=== PATIENT | female | born 1990 | race Caucasian/White ===

== ENCOUNTER → 2019-05-04 17:25 | Observation (INO) | END | disposition home or self-care (01) | LOC: 1NENULAB | PROVIDERS: ADMIT Advanced Practice Midwife; ATTEND Advanced Practice Midwife ==

== ENCOUNTER 2019-05-16 15:38 | Observation (INO) ==
[2019-05-16] MEDS ORDERED: Ondansetron 4 MG/2 ML VIAL IVP PRN (17:38)
[2019-05-16] MEDS ORDERED: Naloxone 0.4 MG/ML INJ IVP PRN (17:38)
[2019-05-16] MEDS ORDERED: Metoclopramide 10 MG/2 ML VIAL IVP PRN (17:38)
[2019-05-16] MEDS ORDERED: *HR* Nalbuphine 10 MG/ML AMPUL IVP PRN (17:38)
[2019-05-16] MEDS ORDERED: Famotidine 20 MG/2 ML VIAL IVP PRN (17:38)
[2019-05-16] MEDS ORDERED: Oxytocin 20 units/ LR 1000 mL 20 UNIT/1,000 ML BAG IVC SCH (17:45)
[2019-05-16] MEDS ORDERED: Ringers Solution, Lactated 1,000 ML IVC SCH (17:45)
[2019-05-16 18:34] LABS: Eosinophils % 0.5 %; Immature Granulocytes % 0.5 % (0-4); Nucleated Red Blood Cells 0.4 /100 WBC (0)
[2019-05-16 18:35] LABS: Amphetamine Screen,Urine Negative ng/mL (Cutoff=1000); Barbiturate Screen,Urine Negative ng/mL (Cutoff=200); Basophils # 0.1 K/mcL (0.0-0.2); Basophils % 0.6 %; Benzodiazepines Screen,Urine Negative ng/mL (Cutoff=200); Cannabinoid Screen,Urine Negative ng/mL (Cutoff = 50); Cocaine Screen,Urine Negative ng/mL (Cutoff= 300); Creatinine,Urine 36 mg/dL; Hematocrit 26.2 % (35.3-44.9); Hemoglobin 7.7 g/dL (11.5-15.4); Lymphocytes # 1.8 K/mcL (0.6-4.6); Lymphocytes % 21.9 %; Mean Corpuscular HGB Conc 29.4 g/dL (31.6-35.5); Mean Corpuscular Hemoglobin 21.4 pg (28.0-33.3); Mean Platelet Volume 11.3 fL (9.4-12.4); Monocytes # 0.6 K/mcL (0.0-1.3); Monocytes % 7.1 %; Opiate Screen,Urine Negative ng/mL (Cutoff=300); Phencyclidine Screen,Urine Negative ng/mL (Cutoff=25); Platelet Count 230 K/mcL (140-400); Protein/Creatinine Ratio,Urine 1.31 mg/mg (0.00-0.20); Red Blood Count 3.59 M/mcL (3.82-4.97); Red Cell Distribution Width 17.4 % (11.5-14.5); Segmented Neutrophils % 69.4 %; White Blood Count 8.1 K/mcL (4.3-11.1)
[2019-05-16 18:37] LABS: Neutrophils # 5.6 K/mcL (1.6-8.9)
[2019-05-16 18:49] LABS: Alanine Aminotransferase 10 Units/L (7-52); Aspartate Amino Transferase 18 Units/L (13-39); BUN/Creatinine Ratio 16 (6-26); Blood Urea Nitrogen 10 mg/dL (6-20); Lactate Dehydrogenase 183 Units/L (140-271); Uric Acid 3.8 mg/dL (2.3-7.6); eGFR For African Americans > 60 (> 60); eGFR For Non-African Americans > 60 (> 60)
[2019-05-16 19:07] LABS: Hypochromasia Present (Not Present); Polychromasia 1+ (Not Present)
== END 2019-05-16 19:35 | disposition other institution (70) | DRG 832 ==
LOC: 1NENULAB → OBSVTOIN 15:38 → INTOOBSV 15:38
PROVIDERS: ADMIT Registered Nurse; ATTEND Registered Nurse

== ENCOUNTER 2021-02-18 09:57 | Inpatient (IN) ==
[2021-02-18] MEDS ORDERED: *HR* Midazolam HCl 2 MG/2 ML VIAL ONE (10:15)
[2021-02-18] MEDS ORDERED: *HR* Propofol 200 MG/20 ML VIAL IVP ONE (10:15)
[2021-02-18] MEDS ORDERED: *HR* FentaNYL (PF) 100 MCG/2 ML VIAL ONE (10:15)
[2021-02-18] MEDS ORDERED: Lidocaine -MPF 2% 2 ML VIAL ONE (10:19)
[2021-02-18] MEDS ORDERED: Ondansetron 4 MG/2 ML VIAL ONE (10:19)
[2021-02-18] MEDS ORDERED: *HR* Rocuronium Bromide 50 MG/5 ML VIAL ONE (10:19)
[2021-02-18] MEDS ORDERED: Lidocaine HCL 4 ML Topical Solution (Laryng-O-Jet Kit Sterile Pak) TP ONE (10:19)
[2021-02-18] MEDS ORDERED: *HR* OxyCODONE Immed Rel 5 MG TABLET PO PRN (10:44)
[2021-02-18] MEDS ORDERED: Acetaminophen IV 1,000 MG/100 ML BAG IVPB ONE (10:44)
[2021-02-18] MEDS ORDERED: Scopolamine Patch 1.5 MG PATCH.TD72 TD ONE (10:44)
[2021-02-18] MEDS ORDERED: *HR* Labetalol 20 MG/4 ML SYRINGE IVP PRN (10:44)
[2021-02-18] MEDS ORDERED: Famotidine 20 MG/2 ML VIAL IVP ONE (10:44)
[2021-02-18] MEDS ORDERED: Pregabalin 75 MG CAPSULE PO ONE (10:44)
[2021-02-18] MEDS ORDERED: *HR* HYDROmorphone 2 MG TABLET PO PRN (10:44)
[2021-02-18] MEDS ORDERED: cefOXitin 2,000 MG in Water for inj. (sterile) 20 ML IVP ONE (10:48)
[2021-02-18] MEDS ORDERED: Lidocaine/EPI 1:100k 1% 50 ML VIAL ONE (10:54)
[2021-02-18] MEDS ORDERED: Ringers Solution, Lactated 1,000 ML IVC SCH (11:00)
[2021-02-18] MEDS ORDERED: CefOXitin 2,000 MG VIAL ONE (12:08)
[2021-02-18] MEDS ORDERED: Sugammadex Sodium 200 MG/2 ML VIAL IV ONE (12:19)
[2021-02-18] MEDS ORDERED: *HR* HYDROMORPHONE 2 MG/ML VIAL ONE (12:29)
[2021-02-18] MEDS: *HR* HYDROmorphone (PF) 1 MG/ML SYRINGE IVP PRN ×2 (13:01→13:11)
[2021-02-18] MEDS ORDERED: *HR* Belladonna Alkaloids/Opium 30 MG RECTAL SUPPOSITORY RC ONE (13:33)
[2021-02-18] MEDS ORDERED: Colchicine 0.6 MG TABLET PO PRN (14:27)
[2021-02-18] MEDS ORDERED: Ondansetron 4 MG/2 ML VIAL IVP PRN (14:27)
[2021-02-18] MEDS ORDERED: Naloxone 0.4 MG/ML INJ IVP PRN (14:27)
[2021-02-18] MEDS: Ringers Solution, Lactated 1,000 ML IVC SCH ×2 (17:23→20:03)
[2021-02-18] MEDS: *HR* Acetaminophen w/Cod 300-30 mg 1 TAB TABLET PO SCH (17:54)
[2021-02-18] MEDS ORDERED: Ketorolac 15 MG/ML VIAL IVP SCH (18:00)
[2021-02-18] MEDS ORDERED: *HR* HYDROmorphone (PF) 1 MG/ML SYRINGE IVP ONE (22:29)
[2021-02-19] MEDS: *HR* Acetaminophen w/Cod 300-30 mg 1 TAB TABLET PO SCH ×4 (00:56→18:04)
[2021-02-19 03:59] LABS: Basophils % 0.3 %; Hematocrit 38.3 % (35.3-44.9); Hemoglobin 12.1 g/dL (11.5-15.4); Immature Granulocytes % 0.4 % (0-4); Lymphocytes # 0.7 K/mcL (0.6-4.6); Lymphocytes % 5.7 %; Mean Corpuscular HGB Conc 31.6 g/dL (31.6-35.5); Mean Corpuscular Hemoglobin 29.9 pg (28.0-33.3); Mean Corpuscular Volume 94.6 fL (83.0-100.0); Mean Platelet Volume 9.9 fL (9.4-12.4); Monocytes # 0.7 K/mcL (0.0-1.3); Neutrophils # 10.2 K/mcL (1.6-8.9); Platelet Count 238 K/mcL (140-400); Red Blood Count 4.05 M/mcL (3.82-4.97); Red Cell Distribution Width 12.1 % (11.5-14.5); Segmented Neutrophils % 87.6 %; White Blood Count 11.6 K/mcL (4.3-11.1)
[2021-02-19] MEDS: Sennosides 8.6 MG TABLET PO PRN ×2 (06:19→21:12)
[2021-02-19] MEDS: DilTIAZem CD (24hr) 120 MG CAP.ER.24H PO SCH (07:32)
[2021-02-19] MEDS: Metoprolol XL (24 HR) Succ 50 MG TAB.ER.24H PO SCH (07:32)
[2021-02-19] MEDS: lisinopriL 10 MG TABLET PO SCH (07:32)
[2021-02-19] MEDS ORDERED: Ketorolac 30 MG/ML VIAL IVP ONE (08:54)
[2021-02-19] MEDS ORDERED: *HR* HYDROmorphone (PF) 1 MG/ML SYRINGE IVP ONE (09:28)
[2021-02-19] MEDS: Ondansetron ODT 4 MG TAB.RAPDIS SL PRN ×2 (12:54→18:58)
[2021-02-19] MEDS: *HR* OxyCODONE Immed Rel 5 MG TABLET PO PRN ×2 (12:54→16:55)
[2021-02-20] MEDS: Ondansetron ODT 4 MG TAB.RAPDIS SL PRN ×4 (00:08→20:45)
[2021-02-20] MEDS: *HR* OxyCODONE/APAP 5/325 TABLET PO PRN ×2 (00:08→06:15)
[2021-02-20] MEDS: Metoprolol XL (24 HR) Succ 50 MG TAB.ER.24H PO SCH (08:21)
[2021-02-20] MEDS: lisinopriL 10 MG TABLET PO SCH (08:21)
[2021-02-20] MEDS: DilTIAZem CD (24hr) 120 MG CAP.ER.24H PO SCH (08:22)
[2021-02-20] MEDS: Ketorolac 30 MG/ML VIAL IVP PRN ×2 (14:09→20:45)
[2021-02-20] MEDS ORDERED: Isovue-370 500 ML BOTTLE IVP ONE ×2 (14:46→16:39)
[2021-02-20] MEDS: Pantoprazole 40 MG VIAL IVP SCH (16:32)
[2021-02-20 17:25] LABS: Hematocrit 34.7 % (35.3-44.9); Hemoglobin 11.2 g/dL (11.5-15.4); Immature Platelets 4.2 % (1.1-6.1); Mean Corpuscular HGB Conc 32.3 g/dL (31.6-35.5); Mean Corpuscular Hemoglobin 29.5 pg (28.0-33.3); Mean Corpuscular Volume 91.3 fL (83.0-100.0); Mean Platelet Volume 10.2 fL (9.4-12.4); Red Blood Count 3.8 M/mcL (3.82-4.97); Red Cell Distribution Width 12.6 % (11.5-14.5); White Blood Count 15.7 K/mcL (4.3-11.1)
[2021-02-20] MEDS ORDERED: ISOVUE-370 100 ML INFUS..BTL PO ONE (18:05)
[2021-02-20] MEDS ORDERED: Ringers Solution, Lactated 1,000 ML ONE (23:57)
[2021-02-21] MEDS: Ringers Solution, Lactated 1,000 ML IVC SCH ×5 (00:11→10:26)
[2021-02-21] MEDS ORDERED: Chloraseptic Spray 177 ML BOTTLE MM PRN (01:27)
[2021-02-21] MEDS: Ketorolac 30 MG/ML VIAL IVP SCH ×4 (01:39→17:50)
[2021-02-21] MEDS: Acetaminophen 650 MG RECTAL SUPP RC SCH ×2 (01:40→05:05)
[2021-02-21] MEDS: Ondansetron 4 MG/2 ML VIAL IVP SCH ×3 (01:40→16:40)
[2021-02-21] MEDS: Pantoprazole 40 MG VIAL IVP SCH ×2 (04:59→16:40)
[2021-02-21 05:10] LABS: Hematocrit 34.3 % (35.3-44.9); Mean Corpuscular HGB Conc 32.1 g/dL (31.6-35.5); Mean Corpuscular Hemoglobin 29.6 pg (28.0-33.3); Mean Corpuscular Volume 92.2 fL (83.0-100.0); Mean Platelet Volume 10.2 fL (9.4-12.4); Platelet Count 230 K/mcL (140-400); Red Blood Count 3.72 M/mcL (3.82-4.97); Red Cell Distribution Width 12.7 % (11.5-14.5); White Blood Count 14.5 K/mcL (4.3-11.1)
[2021-02-21 05:28] LABS: Alanine Aminotransferase 7 Units/L (7-52); Albumin 3.4 g/dL (3.5-5.7); Albumin/Globulin Ratio 1.2 (1.1-2.2); Alkaline Phosphatase 62 Units/L (34-104); Aspartate Amino Transferase 14 Units/L (13-39); BUN/Creatinine Ratio 15 (6-26); Bilirubin,Total 0.7 mg/dL (0.3-1.0); Blood Urea Nitrogen 18 mg/dL (6-20); Calcium 8.8 mg/dL (8.6-10.3); Carbon Dioxide 22 mEq/L (23-29); Chloride 98 mEq/L (98-107); Globulin 2.8 g/dL (2.4-3.5); Glucose 78 mg/dL (70-105); Osmolality,Calculated 265 (280-300); Potassium 4.6 mEq/L (3.5-5.1); Sodium 127 mEq/L (136-145); Total Protein 6.2 g/dL (6.4-8.9); eGFR For African Americans > 60 (> 60); eGFR For Non-African Americans 52 (> 60)
[2021-02-21] MEDS ORDERED: Famotidine 20 MG/2 ML VIAL IVP SCH (06:00)
[2021-02-21] MEDS: Metoprolol XL (24 HR) Succ 50 MG TAB.ER.24H PO SCH (08:47)
[2021-02-21] MEDS: DilTIAZem CD (24hr) 120 MG CAP.ER.24H PO SCH (08:48)
[2021-02-21] MEDS: lisinopriL 10 MG TABLET PO SCH (08:48)
[2021-02-21] MEDS: Acetaminophen IV 1,000 MG/100 ML BAG IVPB SCH ×2 (11:27→17:50)
[2021-02-21] MEDS: *HR* HYDROmorphone (PF) 1 MG/ML SYRINGE IVP PRN (19:40)
[2021-02-22] MEDS: Ketorolac 30 MG/ML VIAL IVP SCH ×4 (00:25→17:12)
[2021-02-22] MEDS: Acetaminophen IV 1,000 MG/100 ML BAG IVPB SCH ×4 (00:30→17:17)
[2021-02-22] MEDS: Ondansetron 4 MG/2 ML VIAL IVP SCH ×3 (00:30→17:11)
[2021-02-22] MEDS: *HR* HYDROmorphone (PF) 1 MG/ML SYRINGE IVP PRN ×2 (01:45→19:30)
[2021-02-22] MEDS: Pantoprazole 40 MG VIAL IVP SCH ×2 (03:38→15:14)
[2021-02-22] MEDS: Ringers Solution, Lactated 1,000 ML IVC SCH ×2 (04:25→11:09)
[2021-02-22] MEDS: DilTIAZem CD (24hr) 120 MG CAP.ER.24H PO SCH (09:15)
[2021-02-22] MEDS: lisinopriL 10 MG TABLET PO SCH (09:15)
[2021-02-22] MEDS: Metoprolol XL (24 HR) Succ 50 MG TAB.ER.24H PO SCH (09:15)
[2021-02-23] MEDS: Acetaminophen IV 1,000 MG/100 ML BAG IVPB SCH ×2 (01:19→05:34)
[2021-02-23] MEDS: Ketorolac 30 MG/ML VIAL IVP SCH ×2 (01:20→05:34)
[2021-02-23] MEDS: Ondansetron 4 MG/2 ML VIAL IVP SCH ×2 (01:20→08:13)
[2021-02-23] MEDS: Ringers Solution, Lactated 1,000 ML IVC SCH (01:21)
[2021-02-23] MEDS: Pantoprazole 40 MG VIAL IVP SCH (01:43)
[2021-02-23] MEDS: *HR* HYDROmorphone (PF) 1 MG/ML SYRINGE IVP PRN (01:47)
[2021-02-23 07:02] VITALS: BP 122/78; PULSE 89; TEMP 98.4; O2SAT 94
[2021-02-23] MEDS: lisinopriL 10 MG TABLET PO SCH (08:13)
[2021-02-23] MEDS: Metoprolol XL (24 HR) Succ 50 MG TAB.ER.24H PO SCH (08:13)
[2021-02-23] MEDS: DilTIAZem CD (24hr) 120 MG CAP.ER.24H PO SCH (08:14)
== END 2021-02-23 12:45 | disposition home or self-care (01) | DRG 742 ==
LOC: SAMDAY 09:57 → 1NENUPED 14:22 → 3ANU 02-21 01:25
PROVIDERS: ADMIT Student in an Organized Health Care Education/Training Program; ATTEND Student in an Organized Health Care Education/Training Program
PROC: GYNLAVH (ICD-10-PCS; 2021-02-18 11:55)

== ENCOUNTER 2021-03-23 03:04 | Inpatient (IN) ==
[2021-03-23] MEDS ORDERED: 0.9 % Sodium Chloride 1,000 ML IVC ONE (03:07)
[2021-03-23] MEDS ORDERED: Isovue-370 500 ML BOTTLE IVP ONE (03:08)
[2021-03-23] MEDS ORDERED: *HR* FentaNYL (PF) 100 MCG/2 ML VIAL ONE ×2 (05:16→06:58)
[2021-03-23] MEDS ORDERED: 0.9 % Sodium Chloride 1,000 ML ONE (05:22)
[2021-03-23 05:24] LABS: Basophils # 0.1 K/mcL (0.0-0.2); Basophils % 0.7 %; Eosinophils # 0.1 K/mcL (0.0-0.6); Eosinophils % 1.3 %; Hematocrit 34.3 % (35.3-44.9); Hemoglobin 10.3 g/dL (11.5-15.4); Immature Granulocytes % 0.3 % (0-4); Lymphocytes # 1.1 K/mcL (0.6-4.6); Lymphocytes % 15.6 %; Mean Corpuscular Volume 93.2 fL (83.0-100.0); Mean Platelet Volume 10.3 fL (9.4-12.4); Monocytes # 0.6 K/mcL (0.0-1.3); Monocytes % 8.5 %; Neutrophils # 4.9 K/mcL (1.6-8.9); Platelet Count 238 K/mcL (140-400); Red Blood Count 3.68 M/mcL (3.82-4.97); Segmented Neutrophils % 73.6 %; White Blood Count 6.7 K/mcL (4.3-11.1)
[2021-03-23 05:39] LABS: INR 1.1; Prothrombin Time 12.4 Seconds (9.4-12.1)
[2021-03-23 05:40] LABS: Alanine Aminotransferase 9 Units/L (7-52); Albumin 3.8 g/dL (3.5-5.7); Albumin/Globulin Ratio 1.1 (1.1-2.2); Alkaline Phosphatase 57 Units/L (34-104); Aspartate Amino Transferase 16 Units/L (13-39); BUN/Creatinine Ratio 23 (6-26); Bilirubin,Indirect 0.3 mg/dL (0.0-1.0); Bilirubin,Total 0.3 mg/dL (0.3-1.0); Blood Urea Nitrogen 14 mg/dL (6-20); Calcium 8.9 mg/dL (8.6-10.3); Carbon Dioxide 25 mEq/L (23-29); Chloride 105 mEq/L (98-107); Globulin 3.6 g/dL (2.4-3.5); Glucose 88 mg/dL (70-105); Osmolality,Calculated 284 (280-300); Potassium 3.7 mEq/L (3.5-5.1); Sodium 137 mEq/L (136-145); Total Protein 7.4 g/dL (6.4-8.9); eGFR For African Americans > 60 (> 60); eGFR For Non-African Americans > 60 (> 60)
[2021-03-23 05:42] LABS: Activated Partial Thrombo Time 33.5 Seconds (26.0-36.0)
[2021-03-23] MEDS ORDERED: ceFAZolin 2,000 MG in 0.9 % Sodium Chloride 100 ML IVPB ONE (06:14)
[2021-03-23] MEDS ORDERED: Lidocaine -MPF 2% 2 ML VIAL ONE (06:47)
[2021-03-23] MEDS ORDERED: *HR* Succinylcholine 200 MG/10 ML VIAL IVP ONE (06:47)
[2021-03-23] MEDS ORDERED: *HR* Rocuronium Bromide 50 MG/5 ML VIAL ONE (06:47)
[2021-03-23] MEDS ORDERED: *HR* Propofol 200 MG/20 ML VIAL IVP ONE (06:48)
[2021-03-23] MEDS ORDERED: *HR* Midazolam HCl 2 MG/2 ML VIAL ONE (06:58)
[2021-03-23] MEDS ORDERED: Albumin Human 5% 25.0 GM/500 ML IV.SOLN ONE (07:03)
[2021-03-23] MEDS ORDERED: *HR* FentaNYL (PF) 100 MCG/2 ML VIAL IVP PRN (07:10)
[2021-03-23] MEDS ORDERED: Naloxone 0.4 MG/ML INJ IVP PRN ×2 (07:10→10:05)
[2021-03-23] MEDS ORDERED: Nitroglycerin 0.4 MG TAB.SUBL SL PRN (07:10)
[2021-03-23] MEDS ORDERED: *HR* HYDROmorphone (PF) 1 MG/ML SYRINGE IVP PRN (07:10)
[2021-03-23] MEDS ORDERED: Ondansetron 4 MG/2 ML VIAL IVP PRN ×2 (07:10→10:05)
[2021-03-23] MEDS ORDERED: Albuterol 2.5 MG/3 ML NEBULIZER IH PRN (07:10)
[2021-03-23] MEDS ORDERED: MetroNIDAZOLE 500 MG/100 ML 500 MG/100 ML BAG IVPB ONE ×2 (07:15→07:54)
[2021-03-23] MEDS ORDERED: *HR* Vasopressin 20 UNIT/ML VIAL ONE (07:27)
[2021-03-23] MEDS ORDERED: Sugammadex Sodium 200 MG/2 ML VIAL IV ONE (08:13)
[2021-03-23] MEDS ORDERED: Ondansetron 4 MG/2 ML VIAL ONE (08:45)
[2021-03-23] MEDS ORDERED: Acetaminophen IV 1,000 MG/100 ML BAG IVPB ONE (09:15)
[2021-03-23] MEDS ORDERED: Colchicine 0.6 MG TABLET PO PRN (10:05)
[2021-03-23] MEDS: Ringers Solution, Lactated 1,000 ML IVC SCH ×2 (10:27→18:42)
[2021-03-23 10:52] LABS: Hematocrit 31.2 % (35.3-44.9); Hemoglobin 9.8 g/dL (11.5-15.4)
[2021-03-23] MEDS: *HR* Acetaminophen w/Cod 300-30 mg 1 TAB TABLET PO PRN ×2 (12:49→18:42)
[2021-03-23] MEDS: lisinopriL 10 MG TABLET PO SCH (13:27)
[2021-03-23] MEDS: DilTIAZem CD (24hr) 120 MG CAP.ER.24H PO SCH (13:27)
[2021-03-23] MEDS: Metoprolol XL (24 HR) Succ 50 MG TAB.ER.24H PO SCH (13:27)
[2021-03-23 16:27] LABS: Hematocrit 34.7 % (35.3-44.9); Hemoglobin 11.2 g/dL (11.5-15.4); Mean Corpuscular HGB Conc 32.3 g/dL (31.6-35.5); Mean Corpuscular Hemoglobin 28.9 pg (28.0-33.3); Mean Corpuscular Volume 89.7 fL (83.0-100.0); Mean Platelet Volume 11.3 fL (9.4-12.4); Platelet Count 185 K/mcL (140-400); Red Blood Count 3.87 M/mcL (3.82-4.97); Red Cell Distribution Width 14.4 % (11.5-14.5)
[2021-03-23 16:57] LABS: Lymphocytes # 0.2 K/mcL (0.6-4.6); Neutrophils # 7.8 K/mcL (1.6-8.9)
[2021-03-23 16:58] LABS: Platelet Estimate Normal (Normal)
[2021-03-24] MEDS: *HR* Acetaminophen w/Cod 300-30 mg 1 TAB TABLET PO PRN ×2 (00:31→07:57)
[2021-03-24] MEDS: Ringers Solution, Lactated 1,000 ML IVC SCH (00:37)
[2021-03-24 04:24] VITALS: O2SAT 98
[2021-03-24] MEDS: lisinopriL 10 MG TABLET PO SCH (07:34)
[2021-03-24] MEDS: Metoprolol XL (24 HR) Succ 50 MG TAB.ER.24H PO SCH (07:34)
[2021-03-24 07:42] VITALS: BP 124/86; PULSE 100; TEMP 98.1
[2021-03-24] MEDS: DilTIAZem CD (24hr) 120 MG CAP.ER.24H PO SCH (09:13)
== END 2021-03-24 10:24 | disposition home or self-care (01) | DRG 920 ==
LOC: EMEROOARM 03:04 → 1NENUOBS 06:38
PROVIDERS: ADMIT Obstetrics & Gynecology; ATTEND Obstetrics & Gynecology